=== PATIENT | female | born 1965 ===

== ENCOUNTER 2020-08-25 13:40 | Outpatient (REF) | payer BC, SELFPAY ==
[2020-08-29 23:16] LABS: SARS-CoV-2 RNA Undetected (Undetected); SARS-CoV-2 Specimen Source Nasal
== END 2020-08-25 14:00 ==
LOC: NCHCN 13:40
PROVIDERS: PCP Family Medicine; Visit Provider Family Medicine
DX: Z20.828 Contact with and (suspected) exposure to other viral communicable diseases (principal)
CPT/HCPCS: U0003